=== PATIENT | female | born 1995 ===

== ENCOUNTER 2017-11-15 16:03 | Emergency (ER) | payer MEDICAID, OTHER ==
[2017-11-15 16:50] VITALS: BMI 29.9
[2017-11-15 16:54] VITALS: BP 118/75; PULSE 108; RESP 18; TEMP 99; O2SAT 98
[2017-11-15] MEDS ORDERED: guaiFENesin 100 mg/5 ml Syrup UD PO STA (18:26)
--- NOTE | 2017-11-15 18:33 | C.PDOC ---
History Of Present Illness 22 y/o female presents to the ER complaining of cramping abdominal pain, cough, and subjective fever which has been present for one week. Patient reports that she has loose stools. She is taking over the counter medication Dayquil and a cough medicine. Patient reports that she had cough medicine at 6:00 am. Patient reports she checked her body temperature at home and it was 100.2. Patient reports that she has positive sick contact as her has similar symptoms. Patient denies that she is . Time Seen by Provider: 11/15/17 18:19 Chief Complaint (Nursing): Abdominal Pain History Per: Patient History/Exam Limitations: no limitations Onset/Duration Of Symptoms: Days Current Symptoms Are (Timing): Still Present Severity: Moderate Additional History Per: Patient (Positive Sick Contact-) Past Medical History Reviewed: Historical Data, Nursing Documentation, Vital Signs Vital Signs: Last Vital Signs Temp 99 F 11/15/17 16:50 Pulse 108 H 11/15/17 16:50 Resp 18 11/15/17 16:50 BP 118/75 11/15/17 16:50 Pulse Ox 98 11/15/17 21:35 - Medical History PMH: Asthma, Hypercholesterolemia Surgical History: Tonsillectomy Family History: States: No Known Family Hx - Social History Hx Tobacco Use: No Hx Alcohol Use: No Hx Substance Use: No - Immunization History Hx Tetanus Toxoid Vaccination: No Hx Influenza Vaccination: No Hx Pneumococcal Vaccination: No Review Of Systems Except As Marked, All Systems Reviewed And Found Negative. Constitutional: Positive for: Fever (subjective fever). Negative for: Chills Respiratory: Positive for: Cough Gastrointestinal: Positive for: Abdominal Pain (cramping abdominal pain), Diarrhea. Negative for: Constipation Physical Exam - Physical Exam Appears: Non-toxic, No Acute Distress, Other (obese woman) Skin: Normal Color, Warm Head: Atraumatic, Normacephalic Eye(s): bilateral: Normal Inspection Nose: Normal Oral Mucosa: Moist Throat: Normal, No Erythema, No Exudate Neck: Supple Chest: Symmetrical Cardiovascular: Rhythm Regular Respiratory: Normal Breath Sounds, No Accessory Muscle Use Gastrointestinal/Abdominal: Normal Exam, Soft, No Tenderness Extremity: Normal ROM Neurological/Psych: Oriented x3, Normal Speech, Normal Cognition, Normal Motor, Normal Sensation ED Course And Treatment - Laboratory Results Lab Interpretation: Normal (UA neg) Urine POC: Negative O2 Sat by Pulse Oximetry: 98 (RA) Pulse Ox Interpretation: Normal Medical Decision Making Medical Decision Making: Plan: --Robitussin 100 mg PO --Motrin 600 mg PO --Urinalysis -- Urine Test viral syndrome, low susp of Flu. inadequate PO regimen @ home. Disposition Doctor Will See Patient In The: Office Counseled Patient/Family Regarding: Studies Performed, Diagnosis - Disposition Referrals: [facility] [Outside] [facility] [Outside] Disposition: HOME/ ROUTINE Disposition Time: 18:55 Condition: GOOD Additional Instructions: Continue Dayquil as prescribed symptoms usually last about 2 weeks No work/school until afebrile for 24 hours. Follow-up in our outpatient Clinic as needed. Instructions: Viral Syndrome (ED) Forms: [facility] ([place]), Work Excuse - Clinical Impression Clinical Impression: Viral syndrome - Scribe Statement The provider has reviewed the documentation as recorded by the Savannah Evans Provider Attestation: All medical record entries made by the Laurieibcinthya were at my direction and personally dictated by me. I have reviewed the chart and agree that the record accurately reflects my personal performance of the history, physical exam, medical decision making, and the department course for this patient. I have also personally directed, reviewed, and agree with the discharge instructions and disposition.
[2017-11-15 18:41] LABS: RBC URINE 2 /hpf (0-3); TRANSITIONAL EPITHIAL < 1 /hpf (0-3); URINE BACTERIA RARE (<OCC); URINE BILIRUBIN NEGATIVE (NEGATIVE); URINE BLOOD NEGATIVE (NEGATIVE); URINE COLOR Yellow (YELLOW); URINE GLUCOSE (UA) NORMAL (Normal); URINE KETONE NEGATIVE (NEGATIVE); URINE LEUKOCYTE ESTERASE NEG Leu/uL (Negative); URINE PROTEIN NEGATIVE (NEGATIVE); URINE UROBILINOGEN NORMAL mg/dL (0.2-1.0); WBC URINE 1 /hpf (0-5)
[2017-11-15] MEDS ORDERED: guaiFENesin 100 mg/5 ml Syrup UD ONE (18:43)
== END 2017-11-15 19:05 | disposition home or self-care (01) ==
LOC: C.ER 16:03
DX: B34.9 Viral infection, unspecified (principal); E78.00 Pure hypercholesterolemia, unspecified